=== PATIENT | male | born 1990 | race Caucasian/White ===

== ENCOUNTER 2020-12-29 18:48 | Inpatient (IN) ==
[2020-12-29 19:25] LABS: Bilirubin,Urine Negative (Negative); Blood,Urine Negative (Negative); Clarity,Urine Clear (Clear); Color,Urine Light-Yellow (Yellow); Glucose,Urine (UA) Normal (Normal); Ketones,Urine Negative (Negative); Leukocyte Esterase,Urine Negative (Negative); Nitrite,Urine Negative (Negative); Protein,Urine Trace mg/dL (Neg-Trace); Specific Gravity,Urine 1.016 (1.010-1.025); Urobilinogen,Urine Normal (Normal)
[2020-12-29 19:44] LABS: Amphetamine Screen,Urine Negative ng/mL (Cutoff=1000); Barbiturate Screen,Urine Negative ng/mL (Cutoff=200); Benzodiazepines Screen,Urine Negative ng/mL (Cutoff=200); Cannabinoid Screen,Urine Negative ng/mL (Cutoff = 50); Cocaine Screen,Urine Negative ng/mL (Cutoff= 300); Opiate Screen,Urine Negative ng/mL (Cutoff=300); Phencyclidine Screen,Urine Negative ng/mL (Cutoff=25)
[2020-12-29] MEDS: Nicotine 21 MG PATCH.TD24 TD SCH (20:02)
[2020-12-29 20:15] LABS: Basophils % 0.7 %; Eosinophils # 0.1 K/mcL (0.0-0.6); Eosinophils % 2.3 %; Immature Granulocytes % 0.3 % (0-4); Lymphocytes # 1.7 K/mcL (0.6-4.6); Lymphocytes % 27.7 %; Mean Corpuscular HGB Conc 34.1 g/dL (31.6-35.5); Mean Corpuscular Hemoglobin 30.4 pg (28.0-33.3); Mean Corpuscular Volume 89.2 fL (83.0-100.0); Mean Platelet Volume 9.5 fL (9.4-12.4); Monocytes # 0.5 K/mcL (0.0-1.3); Neutrophils # 3.7 K/mcL (1.6-8.9); Platelet Count 291 K/mcL (140-400); Red Blood Count 4.93 M/mcL (4.19-5.50); Red Cell Distribution Width 13.6 % (11.5-14.5); White Blood Count 6.1 K/mcL (4.3-11.1)
[2020-12-29 20:30] LABS: Acetaminophen < 10 mcg/mL (10-20); BUN/Creatinine Ratio 11 (6-26); Blood Urea Nitrogen 9 mg/dL (6-20); Calcium 8.3 mg/dL (8.6-10.3); Carbon Dioxide 27 mEq/L (23-29); Chloride 107 mEq/L (98-107); Ethanol 277 mg/dL (Less than 10); Glucose 120 mg/dL (70-105); Osmolality,Calculated 296 (280-300); Salicylate < 2.5 mg/dL (15.0-30.0); Sodium 143 mEq/L (136-145); eGFR For African Americans > 60 (> 60); eGFR For Non-African Americans > 60 (> 60)
[2020-12-29] MEDS ORDERED: Ibuprofen 600 MG TABLET PO ONE (23:54)
[2020-12-30 07:15] LABS: Influenza A PCR Negative (Negative); Influenza B PCR Negative (Negative); Resp. Syncytial Virus PCR Negative (Negative)
[2020-12-30 07:17] LABS: SARS-CoV-2 by PCR (In House) Negative (Negative)
[2020-12-30] MEDS ORDERED: Ibuprofen 400 MG TABLET PO PRN (09:27)
[2020-12-30] MEDS ORDERED: traZODone 50 MG TABLET PO PRN (09:27)
[2020-12-30] MEDS ORDERED: MOM Conc 10 ML UD.LIQ PO PRN (09:27)
[2020-12-30] MEDS ORDERED: Haloperidol Lactate 5 MG/ML VIAL IM PRN (09:27)
[2020-12-30] MEDS ORDERED: haloperidoL 5 MG TABLET PO PRN (09:27)
[2020-12-30] MEDS ORDERED: hydrOXYzine pamoate 25 MG CAPSULE PO PRN (09:27)
[2020-12-30] MEDS ORDERED: *HR* LORazepam 2 MG/ML VIAL IM PRN (09:27)
[2020-12-30] MEDS ORDERED: *HR* LORazepam 1 MG TABLET PO PRN (09:27)
[2020-12-30] MEDS ORDERED: Mag Hydrox/Al Hydrox/Simeth 30 ML UDC PO PRN (09:27)
[2020-12-30] MEDS: Nicotine 21 MG PATCH.TD24 TD SCH ×2 (13:19→15:50)
[2020-12-30] MEDS ORDERED: traZODone 50 MG TABLET PO SCH (21:00)
[2020-12-30 21:11] VITALS: O2SAT 98
[2020-12-31] MEDS: Nicotine 21 MG PATCH.TD24 TD SCH (08:41)
[2020-12-31] MEDS ORDERED: Folic Acid 1 MG TABLET PO SCH (09:00)
[2020-12-31] MEDS ORDERED: Thiamine (B-1) 100 MG TABLET PO SCH (09:00)
[2020-12-31 09:48] VITALS: BP 128/82; PULSE 86; TEMP 98.4
== END 2020-12-31 15:00 | disposition home or self-care (01) | DRG 751 ==
LOC: EMEROOARM 18:48 → 1ANU 12-30 08:18
PROVIDERS: ADMIT Psychiatry & Neurology Psychiatry; ATTEND Psychiatry & Neurology Psychiatry